=== PATIENT | female | born 1980 | race Two or more races ===

== ENCOUNTER 2017-08-24 07:47 | Inpatient (IN) | payer OTHER ==
[~2017-08-24] VITALS: Ht 170.2 cm; Wt 106.1 kg
[2017-08-24] VITALS (13 sets, daily range): BP systolic 99–123; BP diastolic 53–74
[~2017-08-24 07:47] MED LIST: ALPRAZolam 0.5mg tab ORAL PRN; Chloraseptic Spray 20mL Bottle ORAL PRN; Dexamethasone 20mg/5ml IVP ONE; Morphine Sulfate 4mg/ml Inj IM PRN; NKM; ceFAZolin sod 1 GM in NS 55 ML IVPB ONE
[2017-08-24] MEDS ORDERED: Sterile Water Irrig 1000ml IRRIG ONE (08:00)
[2017-08-24] MEDS ORDERED: LR 1000ml ONE (08:00)
[2017-08-24] MEDS ORDERED: NS Irrig 1000ml ONE (08:00)
[2017-08-24] MEDS ORDERED: Dexamethasone 20mg/5ml IVP SCH (09:30)
[2017-08-24] MEDS ORDERED: Thrombin 5000 units TOPIC ONE ×2 (10:32→14:02)
[2017-08-24] MEDS ORDERED: Vancomycin 1gm inj IVPB ONE (10:32)
[2017-08-24] MEDS ORDERED: LR 1000ml 1,000 ML IVLG SCH (11:24)
--- NOTE | 2017-08-24 11:28 | Anethesia Preoperative Eval ---
Anesthesia Pre-op PMH/ROS General Date of Evaluation: August 24, 2017 Time of Evaluation: 14:07 Anesthesiologist: Ranjan ASA Score: ASA 2 Mallampati Score Class I : Soft palate, uvula, fauces, pillars visible Class II: Soft palate, uvula, fauces visible Class III: Soft palate, base of uvula visible Class IV: Only hard plate visible Mallampati Classification: Class II Surgeon: Kaya Diagnosis: Neck Pain Surgical Procedure: ACDF C4-5, C5-6 Anesthesia History: none Family History: no anesthesia problems Allergies: Coded Allergies: No Known Allergies (Unverified , 08/23/17) Medications: see eMAR Past Medical History Other: obesity - BMI 39 PSxH Narrative: R Hand SX Anesthesia Pre-op Phys. Exam Physician Exam Last Vital Signs Date Time Temp Pulse Resp B/P (MAP) Pulse Ox O2 Delivery O2 Flow Rate FiO2 08/24/17 08:41 98.2 64 20 108/72 96 Room Air 98.2 Constitutional: NAD Neurologic: CN 2-12 intact Cardiovascular: RRR Respiratory: CTA Gastrointestinal: S/NT/ND Airway Exam Mallampati Score: Class II MO: full ROM: limited Teeth: intact Anesthesia Pre-op A/P Labs Urine Test Test 08/24/17 07:55 Urine HCG, Qualitative Negative (NEGATIVE) Risk Assessment & Plan Assessment: ASA 2 Plan: GA, BIS, GlideScope Status Change Before Surgery: No Pre-Antibiotics Dru Grams Ancef IV Given Within 1 Hr of Incision: Yes Time Given: 14:31 Zechariah Woodruff MD August 24, 2017 11:28
[2017-08-24] MEDS ORDERED: Metoclopramide 10mg/2ml Inj IVP PRN ×2 (11:30→22:30)
[2017-08-24] MEDS ORDERED: Norco 5mg/325mg tab ORAL PRN (11:30)
[2017-08-24] MEDS ORDERED: Atropine Inj 1mg/10ml Syr IV PRN (11:30)
[2017-08-24] MEDS ORDERED: Labetalol 5mg/ml 20ml vial IV PRN (11:30)
[2017-08-24] MEDS ORDERED: DiphenhydrAMINE 50mg/ml Inj IVP PRN (11:30)
[2017-08-24] MEDS ORDERED: HYDROcodone/Acetamin 7.5/325 tab ORAL PRN (11:30)
[2017-08-24] MEDS ORDERED: oxyCODONE HCL/Acetaminophen 5/325mg ORAL PRN (11:30)
[2017-08-24] MEDS ORDERED: fentaNYL 100 mcg/2 mL IV PRN (11:30)
[2017-08-24] MEDS ORDERED: LORazepam Inj 2mg/ml 1ml IV PRN (11:30)
[2017-08-24] MEDS ORDERED: Ketorolac 30mg Inj IV PRN ×2 (11:30)
[2017-08-24] MEDS ORDERED: Acetaminophen (Non formulary) 100 ML IV ONE (11:30)
[2017-08-24] MEDS ORDERED: Midazolam 2mg/2ml Inj IVP PRN (11:30)
[2017-08-24] MEDS ORDERED: Sodium Chloride 10ml vial INJ ONE ×2 (11:34→15:44)
[2017-08-24] MEDS ORDERED: Lidocaine 1% Plain 30 ml INJ ONE ×4 (11:34→17:12)
[2017-08-24] MEDS ORDERED: Lidocaine 1% MPF 10mg/ml 5ml ONE (11:34)
[2017-08-24] MEDS ORDERED: Zemuron 50mg/5ml Inj IV ONE (13:23)
--- NOTE | 2017-08-24 13:55 | Pre-Procedure Note/Attestation ---
Pre-Procedure Note/Attestation Complete Prior to Procedure Procedure Narrative: ADR possible ACDF C4-5, C5-6 Indications for Procedure Pre-Operative Diagnosis: Post Trauma C4-5 C5-6 HNP Attestation I attest that I discussed the nature of the procedure; its benefits; risks and complications; and alternatives (and the risks and benefits of such alternatives ), prior to the procedure, with the patient (or the patient's legal passenger representative). I attest that, if there was a reasonable possibility of needing a blood transfusion, the patient (or the patient's legal passenger representative) was given the [facility] standardized written summary, pursuant to the Wilber Hyacinth Blood Safety Act ([place] Health and Safety Code # 1645, as amended). I attest that I re-evaluated the patient just prior to the surgery and that there has been no change in the patient's H&P, except as documented below: JC TAYLOR August 24, 2017 13:55
[2017-08-24] MEDS ORDERED: Bacitracin 50000 Units Vial ONE (14:03)
--- NOTE | 2017-08-24 15:31 | Immediate Post-Op Evaluation ---
Immediate Post-Op Evalulation Immediate Post-Op Evalulation Procedure: ACDF C5-6, ADR C4-5 Date of Evaluation: August 24, 2017 Time of Evaluation: 18:30 IV Fluids: 1200 LR Blood Products: 0 Estimated Blood Loss: 75 Urinary Output: 0 Blood Pressure Systolic: 99 Blood Pressure Diastolic: 58 Pulse Rate: 87 Respiratory Rate: 16 O2 Sat by Pulse Oximetry: 97 Temperature (Fahrenheit): 97.6 Pain Score (1-10): 2 Nausea: No Vomiting: No Complications 0 Patient Status: awake, reacts, patent, extubated, none Hydration Status: adequate Dru Grams Ancef IV Time Given: 14:31 Zechariah Woodruff MD August 24, 2017 15:31
[2017-08-24] MEDS ORDERED: Labetalol 5mg/ml 20ml vial IV ONE (15:32)
[2017-08-24] MEDS ORDERED: fentaNYL 100 mcg/2 mL IV ONE (15:39)
[2017-08-24] MEDS ORDERED: Metoprolol 5mg/5ml Inj ONE ×3 (15:45→16:58)
[2017-08-24] MEDS ORDERED: Glycopyrrolate 0.2mg/ml 1ml Vial ONE (17:18)
--- NOTE | 2017-08-24 18:01 | Brief Operative Note ---
Immediate Post Operative Note Operative Note Pre-op Diagnosis: Post Trauma C4-5 C5-6 HNP Procedure: ACDF C5-6, ADR C4-5 SSEP Microscope Xray Osteopromotive material correction deformity anterior plate C5-6 Post-op Diagnosis: same as pre-op Findings: consistent w/pre-op dx studies Surgeon: Kaya CAPONE Filter Machine Operator: Emmie DINERO Anesthesiologist: Ranjan CAPONE Anesthesia: general Specimen: yes Complications: none Condition: stable Fluids: anesthesia Estimated Blood Loss: minimal Drains: none Implant(s) used?: Yes JC TAYLOR August 24, 2017 18:01
[2017-08-24] MEDS ORDERED: Naloxone 0.4mg/ml Inj IVP PRN (18:15)
--- NOTE | 2017-08-24 18:21 | 48 Hour Post Anesthesia Eval ---
Post Anesthesia Evaluation Procedure: ACDF C5-6, ADR C4-5 Date of Evaluation: August 24, 2017 Time of Evaluation: 20:34 Blood Pressure Systolic: 114 0: 72 Pulse Rate: 83 Respiratory Rate: 16 Temperature (Fahrenheit): 97.6 O2 Sat by Pulse Oximetry: 97 Airway: patent Nausea: No Vomiting: No Pain Intensity: 2 Hydration Status: adequate Cardiopulmonary Status: Stable Mental Status/LOC: patient returned to baseline Follow-up Care/Observations: 0 Post-Anesthesia Complications: 0 Follow-up care needed: N/A Zechariah Woodruff MD August 24, 2017 18:21
[2017-08-24] MEDS: HYDROcodone/Acetamin 10/325 tab ORAL PRN (20:54)
[2017-08-24] MEDS ORDERED: D5 1/2NS 1,000 ML IV SCH (22:00)
[2017-08-24] MEDS: ceFAZolin sod 1 GM in D5W 55 ML IV SCH (23:32)
[2017-08-25] VITALS: BP 108/59
--- NOTE | 2017-08-25 01:31 | Operative Note - Dictated ---
DATE OF OPERATION: 08/24/2017 SURGEON: Andi Kirkpatrick, Ph.D., M.D. CREDIT ADJUSTER: BAR Swain. ANESTHESIOLOGIST: Zechariah Woodruff M.D. ANESTHESIA: General with intubation. ESTIMATED BLOOD LOSS: Minimal. DRAINS: None. SPECIMEN: Disc fragments to pathology. COMPLICATIONS: None. POSTOP CONDITION: Good/stable. 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 OPERATIVE PROCEDURES: C4-C5 artificial disc replacement, C5-C6 ACDF with anterior internal plate fixation, placement of osteopromotive material, SSEP monitoring. Intraoperative x-rays interpreted dictated by surgeon. The patient's body habitus is greater than 95th percentile for height. DESCRIPTION OF PROCEDURE: The patient was brought to the operating room and in the supine position, general anesthesia with intubation was induced. After appropriate positioning, a spinal needle was taped to the right side/contralateral from the intended incision side to the neck and a cross-table image was obtained, interpreted by surgeon for determination of incision level placement. Level was appropriately marked with a sterile pen on the left side of the neck. The left hemithorax cervical spine was sterilely prepped and draped free in usual sterile fashion. A left lateral transverse incision in line with skin folds was placed sharply through dermis and epidermis. Electrocautery dissection was carried through subcutaneous tissue to the platysmas muscle. It was identified, isolated, and transected in line with the incision. A blunt dissection was carried medial to the left sternocleidomastoid and the carotid sheath through the deep cervical or pretracheal fascia to the midline between the right and left longus colli muscles. The spinal needle was placed into the disc with a spinal needle, bent at 90 degree angles to avoid penetration greater than 3 mm. Cross-table radiograph was obtained and interpreted by surgeon under sterile conditions demonstrating a correct level C4-C5. Level was marked. Needle removed. Longus colli muscles elevated over the respective intervals and retractors placed. Under high-power magnification, annulotomy followed diskectomy at C4-C5 was undertaken with resection of the posterior longitudinal ligament. No dural tears or CSF leaks at anytime during the procedure. SSEP monitoring stable. Appropriate instrumentation for placement of the appropriately artificial disc. Fit excellent by radiographic criteria. Attention was turned to the C5-C6 interval. Annulotomy was performed. Severe collapse noted. Artificial disc inappropriate. The endplates were denuded of cartilage to bleeding a subchondral bone. Appropriate trials introduced with utilization of the appropriate lordotic titanium graft containing osteopromotive material was tamped into position. Fluoroscopic guidance demonstrated excellent placement alignment. The patient is stable. 10 pounds of traction on the neck was removed. Anterior internal plate fixation in compressive fashion was placed overlying the implant at C5-C6. Fluoroscopic guidance demonstrated excellent alignment and positioning. Of note is that exploration of vital structures revealed no obvious excoriation or laceration. The wound was irrigated with antibiotic-containing saline. FloSeal applied. Sequential reapproximation of the platysmas muscle subcutaneous tissue dermis and epidermis. Surgical strips applied followed with Dermabond followed with sterile bandage maintained in place with tape. The patient was awakened and extubated in the operating room and transported to postop recovery in good stable condition. Andi Kirkpatrick M.D. DR: MARIETTA JOB#: [id number] CC:
[2017-08-25 04:00] VITALS: BP 114/62
[2017-08-25] MEDS: HYDROcodone/Acetamin 10/325 tab ORAL PRN (04:07)
[2017-08-25] MEDS: ceFAZolin sod 1 GM in D5W 55 ML IV SCH (06:00)
--- NOTE | 2017-08-28 10:23 | Discharge Summary ---
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 Reason for Hospitalization: Elective surgery HPI Kimmy Shen is a 37 year old female who was admitted on August 24, 2017 at 20: 43 for pAsian was admitted for elective surosttraumatic cervical herniated nucleus polyposis with neck pain/radiculopathy. Patient was admitted for elective surgery. Procedures s/p 08/24/[address] Kirkpatrick C4-C5 artificial disc replacement, C5-C6 ACDF with anterior internal plate fixation, placement of osteopromotive material, SSEP monitoring. Intraoperative x-rays interpreted The patient's body habitus is greater than 95th percentile for height. 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 S/P C4-C5 artificial disc replacement, C5-C6 ACDF with anterior internal plate fixation, Discharge Condition Upon Discharge: stable Discharge Disposition Patient was discharged Home (01) Discharge Instructions Discharge Instructions Special Instructions I have been assigned to complete a D/C Summary on this account. I was not involved in the patient management Lori Lea NP August 28, 2017 10:23
--- NOTE | 2017-08-29 16:24 | Diagnostic Imaging Report ---
Indication: Reason For Exam: PAIN, intraoperative Technique: Intraoperative images Comparison: none Findings: Localizing image demonstrates a surgical tool projected over the superior endplate of C5. Subsequent images document placement of a disc prosthesis at C4-5, and anterior fusion at C5-6 Impression: Intraoperative images, as described
== END 2017-08-25 06:00 | disposition home or self-care (01) | DRG 473 ==
LOC: SUR 07:47 → EDSTATUS 13:00 → 3E 20:43
DX: M50.121 Cervical disc disorder at C4-C5 level with radiculopathy (principal); E66.9 Obesity, unspecified; W01.0XXS Fall on same level from slipping, tripping and stumbling without subsequent striking against object, sequela; K21.9 Gastro-esophageal reflux disease without esophagitis
CPT/HCPCS: 36415; 72040; 76001; 81025; 86850; 86900; 86901; 87081; J2405; J2765